=== PATIENT | male | born 1980 | race Caucasian/White ===

== ENCOUNTER 2020-06-20 03:27 | Emergency (ER) | payer OTHER ==
[~2020-06-20] VITALS: Ht 180.3 cm; Wt 117.0 kg
[~2020-06-20 03:27] MED LIST: BUPR100 PO; CHLO25B PO; HYDR1TAB94 PO; NICOTINE LOZENGE2 MG PO; ZOLOFT50 MG PO; [UNRECOGNIZED DRUG - REMARK]
[2020-06-20] MEDS ORDERED: Prednisone20 MG PO (03:36)
[2020-06-20] MEDS ORDERED: BLOOD PRESSURE MED (03:57)
== END 2020-06-20 03:59 | disposition home or self-care (01) ==
LOC: ER 03:27
DX: L50.9 Urticaria, unspecified (principal); I10 Essential (primary) hypertension; Z79.899 Other long term (current) drug therapy; Z88.8 Allergy status to other drugs, medicaments and biological substances; Z79.52 Long term (current) use of systemic steroids; Z87.891 Personal history of nicotine dependence
CPT/HCPCS: 99283; J7512

== ENCOUNTER → 2021-07-23 | Outpatient (CLI) | payer OTHER ==
[~2021-07-23] MED LIST changes: +BLOOD PRESSURE MED; +Prednisone20 MG PO
== END | disposition home or self-care (01) ==
LOC: LAB SHORT 08:30
DX: L08.9 Local infection of the skin and subcutaneous tissue, unspecified (principal)
CPT/HCPCS: 87070; 87075; 87077; 87147; 87186; 87205